=== PATIENT | female | born 1985 | race Caucasian/White ===

== ENCOUNTER 2017-11-19 11:15 | Emergency (ER) | payer SELFPAY ==
[~2017-11-19] VITALS: Ht 157.5 cm; Wt 59.4 kg
[2017-11-19 11:18] VITALS: BP 148/74; Ht 157.5 cm; Wt 59.4 kg
== END 2017-11-19 12:07 | disposition home or self-care (01) ==
LOC: ED 11:15
DX: J40 Bronchitis, not specified as acute or chronic (principal); R03.0 Elevated blood-pressure reading, without diagnosis of hypertension